=== PATIENT | male | born 1945 | race African-American/Black ===

== ENCOUNTER 2017-06-28 07:08 | Inpatient (IN) | payer MEDICARE, MEDICAID ==
[2017-06-28] VITALS (12 sets, daily range): BP systolic 75–127; BP diastolic 37–94
[~2017-06-28] VITALS: Ht 165.1 cm; Wt 57.0 kg
[~2017-06-28 07:08] MED LIST: ACET-2178 PO; ACET167L14 PO; AMLO2.5T45 PO; BISA-81 PO; BISACODYL; CA C PO; CALC3.8S NS; D-ME473S8 PO; DIPH25CA83 PO; DOCU50LI25 PO; FLUT16SP15 BOTHNSTRLS; IPRA3AMP9 HHN; LEVO500T2 PO; LEVO50TA8 PO; LEVOTHYROXINE; LORATADINE; LOSARTAN POTASSIUM; OMEP20CA10 PO; PROAIR HFA; PROT40 PO; SIME80TA53 PO; SODI45SP7 NS; SODIUM PHOSPHATE RC; SUCR1TAB30 PO; TUSSIN DM; VITD; [UNRECOGNIZED DRUG - CODE] OP
[2017-06-28] MEDS ORDERED: SODIUM CHLORIDE 0.9% 1,000 ML IV ONE (07:28)
[2017-06-28 08:06] LABS: BASOPHILS % 0.4 % (0.0-2.0); EOSINOPHILS % 0.3 % (0.0-5.0); HEMATOCRIT. 25.2 % (42.0-52.0); HEMOGLOBIN. 7.9 g/dL (14.0-18.0); LYMPHOCYTES % 9.6 % (20.0-50.0); MEAN CORPUSCULAR HEMOGLOBIN 28.4 pg (28.0-32.0); MEAN CORPUSCULAR VOLUME 89.9 fL (80.0-94.0); MEAN PLATELET VOLUME 8.7 fl (7.4-10.4); MONOCYTES % 4.8 % (2.0-8.0); NEUTROPHILS % 84.9 % (40.0-76.0); PLATELET 373 x1000/uL (130-400); RED CELL DISTRIBUTION WIDTH 16.3 % (11.6-14.6)
[2017-06-28 08:19] LABS: PROTHROMBIN TIME 10.7 sec (9.4-11.6)
[2017-06-28 08:23] LABS: CHLORIDE 112 mEq/L (98-107); ETHANOL BLOOD < 10 mg/dL
[2017-06-28] MEDS ORDERED: IPRATROPIUM/ALBUTEROL 0.5-3(2.5)MG/3ML NEB HHN ONE (08:30)
[2017-06-28] MEDS ORDERED: SODIUM CHLORIDE 0.9% 1000ML BAG (SEPSIS BOLUS) IV ONE (08:45)
[2017-06-28] MEDS ORDERED: CEFEPIME 1,000 MG in DEXTROSE 5% WATER 50 ML IV SCH (08:45)
[2017-06-28] MEDS ORDERED: VANCOMYCIN 1 G PREMIX 200 ML IV ONE (08:45)
[2017-06-28 09:09] LABS: BG BASE EXCESS -0.1 mmol/L (-2.0-2.0); BG CARBOXYHEMOGLOBIN 0.3 % (0.5-1.5); BG DEOXYHEMOGLOBIN 5.1 % (0.0-5.0); BG FRACTION INSPIRED OXYGEN 28; BG METHEMOGLOBIN 1.8 % (0.0-1.5); BG OXYGEN SATURATION 94.8 % (92.0-98.5); BG OXYHEMOGLOBIN 92.8 % (94.0-97.0); BG PCO2 36.6 mmHg (35.0-45.0); BG PH 7.435 (7.350-7.450); BG PO2 79.6 mmHg (75.0-100.0); BG SAMPLE SITE RIGHT RADIAL; BG TOTAL HEMOGLOBIN 7.4 g/dL (12.0-18.0); BG VENT MODE NASAL CANNULA
[2017-06-28 09:18] LABS: CLARITY URINE CLEAR (CLEAR); COLOR URINE YELLOW (YELLOW); KETONES URINE TRACE (NEGATIVE); LEUKOCYTE ESTERASE URINE NEGATIVE (NEGATIVE); NITRITE URINE NEGATIVE (NEGATIVE); OCCULT BLOOD URINE NEGATIVE (NEGATIVE); PROTEIN URINE NEGATIVE (NEGATIVE); SPECIFIC GRAVITY URINE 1.028 (1.005-1.030); UROBILINOGEN URINE 0.2 E.U./dL (0.2-1.0)
[2017-06-28 10:14] LABS: *AMPHETAMINES SCREEN URINE NEGATIVE (NEGATIVE); *BARBITURATES SCREEN URINE NEGATIVE (NEGATIVE); *BENZODIAZEPINES SCREEN URINE NEGATIVE (NEGATIVE); *COCAINE SCREEN URINE NEGATIVE (NEGATIVE); CANNABINOID URINE SCREEN NEGATIVE (NEGATIVE); METHADONE URINE SCREEN NEGATIVE (NEGATIVE); OPIATES URINE SCREEN NEGATIVE (NEGATIVE); PHENCYCLIDINE URINE SCREEN NEGATIVE (NEGATIVE)
[2017-06-28] MEDS ORDERED: CLONIDINE 0.1MG TABLET PO PRN (11:15)
[2017-06-28] MEDS ORDERED: ONDANSETRON HCL 4MG/2ML INJ IV PRN (11:15)
[2017-06-28] MEDS ORDERED: MAGNESIUM/ALUMINUM HYDROXIDE/SIMETHICONE 30ML UDC PO PRN (11:15)
[2017-06-28 12:25] LABS: CHLORIDE 117 mEq/L (98-107)
[2017-06-28] MEDS ORDERED: LEVOTHYROXINE SODIUM 75MCG TABLET PO SCH (15:15)
[2017-06-28] MEDS ORDERED: PANTOPRAZOLE SODIUM 40 MG/VIAL IV SCH (15:15)
[2017-06-28] MEDS ORDERED: DEXTROSE 50% WATER 50ML SYRINGE IV PRN (15:30)
[2017-06-28] MEDS ORDERED: IPRATROPIUM/ALBUTEROL 0.5-3(2.5)MG/3ML NEB HHN PRN (15:30)
[2017-06-28 16:11] LABS: CREATINE KINASE MB FRACTION 4.4 ng/mL (0.5-3.6)
[2017-06-28] MEDS: SODIUM CHLORIDE 0.9% 1,000 ML IV SCH ×2 (17:09→19:41)
[2017-06-28] MEDS: METHYLPREDNISOLONE SOD SUCC 40 MG/ML VIAL IV SCH (17:10)
[2017-06-28] MEDS: BLOOD SUGAR DIAGNOSTIC STRIP TEST SCH ×2 (17:20→21:40)
[2017-06-28] MEDS: INSULIN LISPRO 100 UNITS/ML SUBCUT SCH ×2 (17:20→21:00)
[2017-06-28] MEDS: IPRATROPIUM/ALBUTEROL 0.5-3(2.5)MG/3ML NEB HHN SCH ×2 (18:00→20:18)
[2017-06-28] MEDS ORDERED: LEVOFLOXACIN 500MG PREMIX 100 ML IV NR (18:00)
[2017-06-28] MEDS: METRONIDAZOLE 500 MG PREMIX 100 ML IV SCH (18:33)
[2017-06-28] MEDS ORDERED: TERBUTALINE SULFATE 1MG/ML VIAL SUBCUT NR (19:15)
[2017-06-28 20:19] LABS: HEMOGLOBIN 5.2 g/dL (14.0-18.0)
[2017-06-28 20:34] LABS: CREATINE KINASE MB FRACTION 14.7 ng/mL (0.5-3.6)
[2017-06-28 20:41] LABS: BG BASE EXCESS -8.9 mmol/L (-2.0-2.0); BG CARBOXYHEMOGLOBIN 1.3 % (0.5-1.5); BG FRACTION INSPIRED OXYGEN 40; BG HCO3 ACT 15.4 mmol/L (22.0-26.0); BG METHEMOGLOBIN 0.6 % (0.0-1.5); BG OXYGEN SATURATION 96.9 % (92.0-98.5); BG OXYHEMOGLOBIN 95.1 % (94.0-97.0); BG PCO2 25.9 mmHg (35.0-45.0); BG PH 7.392 (7.350-7.450); BG PO2 105.2 mmHg (75.0-100.0); BG SAMPLE SITE LEFT RADIAL; BG VENT MODE MASK - SIMPLE
[2017-06-28] MEDS ORDERED: BISACODYL 10MG SUPP PR NR (22:45)
[2017-06-28] MEDS ORDERED: PANTOPRAZOLE SODIUM 40 MG/VIAL IV NR (22:45)
[2017-06-29] VITALS (57 sets, daily range): BP systolic 94–137; BP diastolic 50–108
[2017-06-29] MEDS: METHYLPREDNISOLONE SOD SUCC 40 MG/ML VIAL IV SCH (00:25)
[2017-06-29] MEDS: METRONIDAZOLE 500 MG PREMIX 100 ML IV SCH ×3 (01:04→18:50)
[2017-06-29] MEDS: IPRATROPIUM/ALBUTEROL 0.5-3(2.5)MG/3ML NEB HHN SCH ×4 (03:42→19:47)
[2017-06-29 05:33] LABS: HEMATOCRIT. 31.2 % (42.0-52.0); HEMOGLOBIN. 10.1 g/dL (14.0-18.0); MEAN CORPUSCULAR HEMOGLOBIN 28.2 pg (28.0-32.0); MEAN CORPUSCULAR VOLUME 87.3 fL (80.0-94.0); PLATELET 208 x1000/uL (130-400); RED BLOOD CELL COUNT 3.57 mill/uL (4.7-6.1); RED CELL DISTRIBUTION WIDTH 15.1 % (11.6-14.6)
[2017-06-29] MEDS ORDERED: PANTOPRAZOLE SODIUM 40 MG/VIAL IV SCH (06:00)
[2017-06-29] MEDS: BLOOD SUGAR DIAGNOSTIC STRIP TEST SCH ×4 (07:50→22:25)
[2017-06-29] MEDS: LORAZEPAM 2MG/ML CPJ IV PRN (07:52)
[2017-06-29 07:57] LABS: PLATELET ESTIMATE NORMAL
[2017-06-29] MEDS: INSULIN LISPRO 100 UNITS/ML SUBCUT SCH ×4 (08:20→22:25)
[2017-06-29] MEDS ORDERED: LEVOFLOXACIN 500MG PREMIX 100 ML IV SCH (09:00)
[2017-06-29] MEDS ORDERED: LEVOTHYROXINE SODIUM 100 MCG/ VIAL IV SCH (09:00)
[2017-06-29 09:52] LABS: CHLORIDE 118 mEq/L (98-107); PHOSPHORUS 2.6 mg/dL (2.5-4.9)
[2017-06-29] MEDS ORDERED: BACTERIOSTATIC SODIUM CHLORIDE 0.9% 30ML VIAL IJ ONE (11:16)
[2017-06-29] MEDS ORDERED: PANTOPRAZOLE 80 MG in SODIUM CHLORIDE 0.9% 100 ML IV SCH (12:15)
[2017-06-29 12:53] LABS: HEMATOCRIT 26.4 % (42.0-52.0); HEMOGLOBIN 8.8 g/dL (14.0-18.0)
[2017-06-29] MEDS: METHYLPREDNISOLONE SOD SUCC IV SCH ×3 (13:03→22:32)
[2017-06-29] MEDS: SODIUM CHLORIDE 0.9% IV SCH ×3 (13:03→22:32)
[2017-06-29] MEDS: SODIUM CHLORIDE 0.9% 1,000 ML IV SCH (13:04)
[2017-06-29] MEDS: ACETAMINOPHEN 325MG TABLET PO PRN (14:27)
[2017-06-29] MEDS ORDERED: LEVOFLOXACIN 500MG PREMIX 100 ML IV NR (15:00)
[2017-06-29] MEDS ORDERED: FENTANYL CITRATE/PF 50MCG/ML 2ML VIAL ONE (17:17)
[2017-06-29] MEDS ORDERED: MIDAZOLAM HCL 5 MG/5 ML VIAL ONE (17:17)
[2017-06-29] MEDS ORDERED: MIDAZOLAM HCL 5 MG/5 ML VIAL IV PRN (17:35)
[2017-06-29] MEDS: PANTOPRAZOLE SODIUM 40 MG/VIAL IV SCH (18:50)
[2017-06-29 19:11] LABS: HEMATOCRIT 23.4 % (42.0-52.0); HEMOGLOBIN 7.7 g/dL (14.0-18.0)
[2017-06-29] MEDS ORDERED: SORBITOL 70% SOLN 30ML PO NR (20:00)
[2017-06-29] MEDS: SUCRALFATE 1 G/10 ML UDC PO SCH (21:00)
[2017-06-30] VITALS (12 sets, daily range): BP systolic 101–126; BP diastolic 57–73
[2017-06-30] MEDS: METRONIDAZOLE 500 MG PREMIX 100 ML IV SCH ×3 (01:17→17:56)
[2017-06-30] MEDS: LORAZEPAM 2MG/ML CPJ IV PRN ×2 (01:28→21:20)
[2017-06-30] MEDS ORDERED: SORBITOL 70% SOLN 30ML PO NR (05:00)
[2017-06-30] MEDS: PANTOPRAZOLE SODIUM 40 MG/VIAL IV SCH ×2 (05:35→17:56)
[2017-06-30] MEDS: SODIUM CHLORIDE 0.9% IV SCH ×3 (05:35→21:20)
[2017-06-30] MEDS: METHYLPREDNISOLONE SOD SUCC IV SCH ×3 (05:35→21:20)
[2017-06-30] MEDS: SODIUM CHLORIDE 0.9% 1,000 ML IV SCH (06:24)
[2017-06-30 06:34] LABS: HEMATOCRIT 22.5 % (42.0-52.0); HEMOGLOBIN 7.5 g/dL (14.0-18.0); MEAN CORPUSCULAR HEMOGLOBIN 28.6 pg (28.0-32.0); MEAN CORPUSCULAR VOLUME 85.7 fL (80.0-94.0); PLATELET 162 x1000/uL (130-400); RED BLOOD CELL COUNT 2.63 mill/uL (4.7-6.1)
[2017-06-30] MEDS: INSULIN LISPRO 100 UNITS/ML SUBCUT SCH ×3 (08:00→17:52)
[2017-06-30] MEDS: BLOOD SUGAR DIAGNOSTIC STRIP TEST SCH ×3 (08:01→17:19)
[2017-06-30] MEDS: SUCRALFATE 1 G/10 ML UDC PO SCH ×4 (08:16→21:20)
[2017-06-30] MEDS: LEVOTHYROXINE SODIUM 100 MCG/ VIAL IV SCH (08:16)
[2017-06-30] MEDS: IPRATROPIUM/ALBUTEROL 0.5-3(2.5)MG/3ML NEB HHN SCH ×3 (08:58→20:57)
[2017-06-30] MEDS: LEVOFLOXACIN 250MG PREMIX 50 ML IV SCH (16:26)
[2017-07-01] VITALS (12 sets, daily range): BP systolic 102–136; BP diastolic 57–76
[2017-07-01] MEDS: BLOOD SUGAR DIAGNOSTIC STRIP TEST SCH ×4 (00:03→18:00)
[2017-07-01] MEDS: SODIUM CHLORIDE 0.9% 1,000 ML IV SCH (00:11)
[2017-07-01] MEDS: IPRATROPIUM/ALBUTEROL 0.5-3(2.5)MG/3ML NEB HHN SCH ×4 (01:22→20:39)
[2017-07-01] MEDS: METRONIDAZOLE 500 MG PREMIX 100 ML IV SCH ×3 (02:09→18:54)
[2017-07-01] MEDS: INSULIN LISPRO 100 UNITS/ML SUBCUT SCH ×4 (06:00→18:00)
[2017-07-01 06:13] LABS: HEMATOCRIT. 21.6 % (42.0-52.0); HEMOGLOBIN. 7.2 g/dL (14.0-18.0); MEAN CORPUSCULAR VOLUME 87.8 fL (80.0-94.0); MEAN PLATELET VOLUME 9.1 fl (7.4-10.4); PLATELET 133 x1000/uL (130-400); RED BLOOD CELL COUNT 2.46 mill/uL (4.7-6.1); RED CELL DISTRIBUTION WIDTH 16.2 % (11.6-14.6)
[2017-07-01 06:38] LABS: CHLORIDE 128 mEq/L (98-107)
[2017-07-01] MEDS: PANTOPRAZOLE SODIUM 40 MG/VIAL IV SCH ×2 (06:39→18:53)
[2017-07-01] MEDS: SODIUM CHLORIDE 0.9% IV SCH ×2 (06:39→14:49)
[2017-07-01] MEDS: SUCRALFATE 1 G/10 ML UDC PO SCH ×4 (06:39→21:13)
[2017-07-01] MEDS: METHYLPREDNISOLONE SOD SUCC IV SCH ×2 (06:39→14:49)
[2017-07-01] MEDS: LEVOTHYROXINE SODIUM 100 MCG/ VIAL IV SCH (09:13)
[2017-07-01] MEDS: DEXTROSE 5% WATER 1,000 ML IV SCH (14:49)
[2017-07-01 15:51] LABS: PLATELET ESTIMATE NORMAL
[2017-07-01] MEDS ORDERED: LACTULOSE 20G/30ML UDC PO NR (16:30)
[2017-07-01] MEDS ORDERED: POTASSIUM CHLORIDE 20MEQ/PACKET PO NR (16:30)
[2017-07-01] MEDS: DOCUSATE SODIUM SUGAR FREE 100MG/10ML UDC NG SCH (18:52)
[2017-07-01] MEDS: LEVOFLOXACIN 250MG PREMIX 50 ML IV SCH (19:04)
[2017-07-01] MEDS: ACETAMINOPHEN 325MG TABLET PO PRN (21:13)
[2017-07-01] MEDS: DOCUSATE SODIUM 100MG CAPSULE PO PRN (21:32)
[2017-07-01] MEDS: LORAZEPAM 2MG/ML CPJ IV PRN (22:38)
[2017-07-02] VITALS (12 sets, daily range): BP systolic 105–136; BP diastolic 60–87
[2017-07-02] MEDS: INSULIN LISPRO 100 UNITS/ML SUBCUT SCH ×4 (00:20→17:58)
[2017-07-02] MEDS: BLOOD SUGAR DIAGNOSTIC STRIP TEST SCH ×4 (00:21→17:57)
[2017-07-02] MEDS: IPRATROPIUM/ALBUTEROL 0.5-3(2.5)MG/3ML NEB HHN SCH ×4 (00:34→23:57)
[2017-07-02] MEDS: METRONIDAZOLE 500 MG PREMIX 100 ML IV SCH ×3 (02:15→17:56)
[2017-07-02 06:10] LABS: INR 1.2; PARTIAL THROMBOPLASTIN TIME 25.4 sec (23.4-31.0); PROTHROMBIN TIME 12.2 sec (9.4-11.6)
[2017-07-02] MEDS: SUCRALFATE 1 G/10 ML UDC PO SCH ×4 (06:37→20:58)
[2017-07-02] MEDS: PANTOPRAZOLE SODIUM 40 MG/VIAL IV SCH ×2 (06:38→17:56)
[2017-07-02] MEDS ORDERED: NA PHOS,M-B/NA PHOS,DI-BA ENEMA 118ML PR NR ×3 (07:30→15:00)
[2017-07-02] MEDS: DOCUSATE SODIUM SUGAR FREE 100MG/10ML UDC NG SCH (10:39)
[2017-07-02] MEDS: LEVOTHYROXINE SODIUM 100 MCG/ VIAL IV SCH (10:39)
[2017-07-02] MEDS: DEXTROSE 5% WATER 1,000 ML IV SCH (10:40)
[2017-07-02 13:26] LABS: BASOPHILS % 0.1 % (0.0-2.0); HEMATOCRIT. 22.5 % (42.0-52.0); HEMOGLOBIN. 7.3 g/dL (14.0-18.0); LYMPHOCYTES % 8.4 % (20.0-50.0); MEAN CORPUSCULAR HEMOGLOBIN 28.1 pg (28.0-32.0); MEAN CORPUSCULAR VOLUME 86.9 fL (80.0-94.0); MEAN PLATELET VOLUME 7.8 fl (7.4-10.4); MONOCYTES % 5.9 % (2.0-8.0); NEUTROPHILS % 85.6 % (40.0-76.0); PLATELET 102 x1000/uL (130-400); RED BLOOD CELL COUNT 2.59 mill/uL (4.7-6.1); RED CELL DISTRIBUTION WIDTH 16.1 % (11.6-14.6)
[2017-07-02] MEDS: METHYLPREDNISOLONE SOD SUCC 125 MG/2 ML VIAL IV SCH ×2 (13:35→17:56)
[2017-07-02 13:45] LABS: CHLORIDE 131 mEq/L (98-107)
[2017-07-02] MEDS: LEVOFLOXACIN 250MG PREMIX 50 ML IV SCH ×2 (14:30→14:31)
[2017-07-02] MEDS: BUDESONIDE 0.5MG/2ML NEB HHN SCH (23:57)
[2017-07-03] VITALS (13 sets, daily range): BP systolic 121–142; BP diastolic 68–82
[2017-07-03] MEDS: BLOOD SUGAR DIAGNOSTIC STRIP TEST SCH ×5 (00:24→23:18)
[2017-07-03] MEDS: METHYLPREDNISOLONE SOD SUCC 125 MG/2 ML VIAL IV SCH ×3 (00:25→23:18)
[2017-07-03] MEDS: IPRATROPIUM/ALBUTEROL 0.5-3(2.5)MG/3ML NEB HHN SCH ×4 (02:03→20:30)
[2017-07-03] MEDS: METRONIDAZOLE 500 MG PREMIX 100 ML IV SCH ×3 (02:58→17:20)
[2017-07-03] MEDS: PANTOPRAZOLE SODIUM 40 MG/VIAL IV SCH ×2 (05:35→17:20)
[2017-07-03] MEDS: DEXTROSE 5% WATER 1,000 ML IV SCH (05:35)
[2017-07-03] MEDS: INSULIN LISPRO 100 UNITS/ML SUBCUT SCH ×5 (05:42→23:21)
[2017-07-03] MEDS: SUCRALFATE 1 G/10 ML UDC PO SCH ×4 (07:55→20:21)
[2017-07-03] MEDS: BUDESONIDE 0.5MG/2ML NEB HHN SCH ×2 (08:32→20:30)
[2017-07-03] MEDS: LEVOTHYROXINE SODIUM 100 MCG/ VIAL IV SCH (09:25)
[2017-07-03] MEDS: DOCUSATE SODIUM SUGAR FREE 100MG/10ML UDC NG SCH (09:25)
[2017-07-03] MEDS ORDERED: SORBITOL 70% SOLN 30ML PO NR (12:00)
[2017-07-03] MEDS: LEVOFLOXACIN 250MG PREMIX 50 ML IV SCH (14:56)
[2017-07-04] VITALS (12 sets, daily range): BP systolic 125–147; BP diastolic 70–86
[2017-07-04] MEDS: METRONIDAZOLE 500 MG PREMIX 100 ML IV SCH ×3 (01:26→17:39)
[2017-07-04] MEDS: DEXTROSE 5% WATER 1,000 ML IV SCH (01:26)
[2017-07-04] MEDS: IPRATROPIUM/ALBUTEROL 0.5-3(2.5)MG/3ML NEB HHN SCH ×4 (01:29→20:29)
[2017-07-04 05:57] LABS: HEMATOCRIT. 22.2 % (42.0-52.0); HEMOGLOBIN. 7.4 g/dL (14.0-18.0); MEAN CORPUSCULAR HEMOGLOBIN 28.4 pg (28.0-32.0); MEAN CORPUSCULAR VOLUME 84.7 fL (80.0-94.0); MEAN PLATELET VOLUME 9.5 fl (7.4-10.4); PLATELET 93 x1000/uL (130-400); RED BLOOD CELL COUNT 2.62 mill/uL (4.7-6.1); RED CELL DISTRIBUTION WIDTH 15.7 % (11.6-14.6)
[2017-07-04] MEDS: INSULIN LISPRO 100 UNITS/ML SUBCUT SCH ×4 (06:00→23:38)
[2017-07-04 06:16] LABS: CHLORIDE 110 mEq/L (98-107)
[2017-07-04] MEDS: PANTOPRAZOLE SODIUM 40 MG/VIAL IV SCH ×2 (06:27→17:38)
[2017-07-04] MEDS: BLOOD SUGAR DIAGNOSTIC STRIP TEST SCH ×4 (06:27→23:38)
[2017-07-04] MEDS: SUCRALFATE 1 G/10 ML UDC PO SCH ×4 (06:32→20:41)
[2017-07-04] MEDS: BUDESONIDE 0.5MG/2ML NEB HHN SCH ×2 (07:49→20:29)
[2017-07-04] MEDS: DOCUSATE SODIUM SUGAR FREE 100MG/10ML UDC NG SCH (09:44)
[2017-07-04] MEDS: LEVOTHYROXINE SODIUM 100 MCG/ VIAL IV SCH (09:45)
[2017-07-04] MEDS: METHYLPREDNISOLONE SOD SUCC 125 MG/2 ML VIAL IV SCH ×2 (12:07→23:42)
[2017-07-04 14:18] LABS: PLATELET ESTIMATE NORMAL
[2017-07-04] MEDS: LEVOFLOXACIN 250MG PREMIX 50 ML IV SCH (16:29)
[2017-07-04] MEDS ORDERED: SORBITOL 70% SOLN 30ML PO NR (18:00)
[2017-07-05] VITALS (13 sets, daily range): BP systolic 113–156; BP diastolic 53–97
[2017-07-05] MEDS: IPRATROPIUM/ALBUTEROL 0.5-3(2.5)MG/3ML NEB HHN SCH ×4 (00:41→19:52)
[2017-07-05] MEDS: METRONIDAZOLE 500 MG PREMIX 100 ML IV SCH ×3 (02:25→17:34)
[2017-07-05] MEDS: INSULIN LISPRO 100 UNITS/ML SUBCUT SCH ×4 (06:00→23:29)
[2017-07-05] MEDS: BLOOD SUGAR DIAGNOSTIC STRIP TEST SCH ×4 (06:37→23:29)
[2017-07-05] MEDS: PANTOPRAZOLE SODIUM 40 MG/VIAL IV SCH ×2 (06:37→17:18)
[2017-07-05] MEDS: SUCRALFATE 1 G/10 ML UDC PO SCH ×4 (06:37→20:59)
[2017-07-05] MEDS: DEXTROSE 5% WATER 1,000 ML IV SCH ×2 (06:37→16:38)
[2017-07-05] MEDS: DOCUSATE SODIUM 100MG CAPSULE PO PRN (08:47)
[2017-07-05] MEDS: LEVOTHYROXINE SODIUM 100 MCG/ VIAL IV SCH (08:48)
[2017-07-05] MEDS: BUDESONIDE 0.5MG/2ML NEB HHN SCH (08:49)
[2017-07-05] MEDS: DOCUSATE SODIUM SUGAR FREE 100MG/10ML UDC NG SCH (08:52)
[2017-07-05] MEDS: ACETAMINOPHEN 325MG TABLET PO PRN (09:08)
[2017-07-05] MEDS ORDERED: SORBITOL 70% SOLN 30ML NG NR (12:15)
[2017-07-05] MEDS ORDERED: BISACODYL 10MG SUPP PR NR (12:15)
[2017-07-05 13:26] LABS: HEMATOCRIT 23.5 % (42.0-52.0); HEMOGLOBIN 7.7 g/dL (14.0-18.0); MEAN CORPUSCULAR HEMOGLOBIN 27.9 pg (28.0-32.0); MEAN CORPUSCULAR VOLUME 85.4 fL (80.0-94.0); PLATELET 107 x1000/uL (130-400); RED BLOOD CELL COUNT 2.75 mill/uL (4.7-6.1); RED CELL DISTRIBUTION WIDTH 15.6 % (11.6-14.6)
[2017-07-05] MEDS: METHYLPREDNISOLONE SOD SUCC 40 MG/ML VIAL IV SCH ×2 (13:49→20:59)
[2017-07-05] MEDS: LEVOFLOXACIN 250MG PREMIX 50 ML IV SCH (16:39)
[2017-07-06] VITALS (14 sets, daily range): BP systolic 121–152; BP diastolic 66–96
[2017-07-06] MEDS: IPRATROPIUM/ALBUTEROL 0.5-3(2.5)MG/3ML NEB HHN SCH ×4 (01:33→20:32)
[2017-07-06] MEDS: ACETAMINOPHEN 325MG TABLET PO PRN (02:13)
[2017-07-06] MEDS: METRONIDAZOLE 500 MG PREMIX 100 ML IV SCH ×3 (02:13→17:24)
[2017-07-06] MEDS: DEXTROSE 5% WATER 1,000 ML IV SCH (04:35)
[2017-07-06] MEDS: INSULIN LISPRO 100 UNITS/ML SUBCUT SCH ×4 (06:00→23:33)
[2017-07-06] MEDS: PANTOPRAZOLE SODIUM 40 MG/VIAL IV SCH ×2 (06:17→17:24)
[2017-07-06] MEDS: SUCRALFATE 1 G/10 ML UDC PO SCH ×4 (06:17→21:19)
[2017-07-06] MEDS: BLOOD SUGAR DIAGNOSTIC STRIP TEST SCH ×4 (06:17→23:33)
[2017-07-06 06:56] LABS: HEMATOCRIT. 23.7 % (42.0-52.0); HEMOGLOBIN. 7.9 g/dL (14.0-18.0); MEAN CORPUSCULAR HEMOGLOBIN 28.2 pg (28.0-32.0); MEAN CORPUSCULAR VOLUME 84.9 fL (80.0-94.0); MEAN PLATELET VOLUME 9.8 fl (7.4-10.4); PLATELET 126 x1000/uL (130-400); RED BLOOD CELL COUNT 2.79 mill/uL (4.7-6.1); RED CELL DISTRIBUTION WIDTH 15.7 % (11.6-14.6)
[2017-07-06 07:24] LABS: CHLORIDE 105 mEq/L (98-107)
[2017-07-06] MEDS: LEVOTHYROXINE SODIUM 100 MCG/ VIAL IV SCH (08:41)
[2017-07-06] MEDS: METHYLPREDNISOLONE SOD SUCC 40 MG/ML VIAL IV SCH ×2 (08:41→21:19)
[2017-07-06] MEDS: DOCUSATE SODIUM SUGAR FREE 100MG/10ML UDC NG SCH (08:41)
[2017-07-06 16:40] LABS: PLATELET ESTIMATE DECREASED
[2017-07-06] MEDS: LEVOFLOXACIN 250MG PREMIX 50 ML IV SCH (16:43)
[2017-07-07] VITALS (11 sets, daily range): BP systolic 126–159; BP diastolic 66–98
[2017-07-07] MEDS: IPRATROPIUM/ALBUTEROL 0.5-3(2.5)MG/3ML NEB HHN SCH ×4 (01:05→20:01)
[2017-07-07] MEDS: METRONIDAZOLE 500 MG PREMIX 100 ML IV SCH ×3 (02:06→17:02)
[2017-07-07] MEDS: DEXTROSE 5% WATER 1,000 ML IV SCH (02:07)
[2017-07-07] MEDS: INSULIN LISPRO 100 UNITS/ML SUBCUT SCH ×3 (06:00→17:07)
[2017-07-07] MEDS: SUCRALFATE 1 G/10 ML UDC PO SCH ×3 (06:40→16:45)
[2017-07-07] MEDS: PANTOPRAZOLE SODIUM 40 MG/VIAL IV SCH ×2 (06:40→17:02)
[2017-07-07] MEDS: BLOOD SUGAR DIAGNOSTIC STRIP TEST SCH ×3 (06:41→17:02)
[2017-07-07] MEDS ORDERED: PREDNISONE 20MG TABLET PO SCH (09:00)
[2017-07-07] MEDS: DOCUSATE SODIUM SUGAR FREE 100MG/10ML UDC NG SCH (09:43)
[2017-07-07] MEDS: LEVOTHYROXINE SODIUM 100 MCG/ VIAL IV SCH (09:43)
[2017-07-07] MEDS: LEVOFLOXACIN 250MG PREMIX 50 ML IV SCH (16:11)
[2017-07-08] MEDS ORDERED: LEVOTHYROXINE SODIUM 50MCG TABLET NG SCH (07:30)
[2017-07-08] MEDS ORDERED: LANSOPRAZOLE 30MG DR CAPSULE GT SCH (07:30)
[2017-07-08] MEDS ORDERED: PANTOPRAZOLE 40MG DR TABLET PO SCH (09:00)
== END 2017-07-07 21:11 | DRG 871 ==
LOC: EDSEX → ER 07:26 → 6WST 10:28 → EDSEX 10:28 → EDBEDREQTM 10:34 → ENRESERV 12:41 → CVICU 19:30 → 5EST 06-29 21:05
PROVIDERS: ADMIT Internal Medicine; ATTEND Internal Medicine
PROC: 30233N1 Transfusion of Nonautologous Red Blood Cells into Peripheral Vein, Percutaneous Approach (ICD-10-PCS; 2017-06-28)
PROC: 0DB68ZX Excision of Stomach, Via Natural or Artificial Opening Endoscopic, Diagnostic (ICD-10-PCS; principal; 2017-06-29)
DX: A41.9 Sepsis, unspecified organism (principal); J69.0 Pneumonitis due to inhalation of food and vomit; J96.20 Acute and chronic respiratory failure, unspecified whether with hypoxia or hypercapnia; N17.9 Acute kidney failure, unspecified; K29.01 Acute gastritis with bleeding; E87.2 Acidosis; D68.69 Other thrombophilia; E87.0 Hyperosmolality and hypernatremia; F73 Profound intellectual disabilities; E03.9 Hypothyroidism, unspecified; D64.9 Anemia, unspecified; E87.6 Hypokalemia; H26.9 Unspecified cataract; K31.7 Polyp of stomach and duodenum; R62.50 Unspecified lack of expected normal physiological development in childhood; K44.9 Diaphragmatic hernia without obstruction or gangrene; I10 Essential (primary) hypertension; R13.10 Dysphagia, unspecified; Z79.899 Other long term (current) drug therapy; Z90.49 Acquired absence of other specified parts of digestive tract; Z88.6 Allergy status to analgesic agent; Z88.1 Allergy status to other antibiotic agents; Z88.8 Allergy status to other drugs, medicaments and biological substances
CPT/HCPCS: 36415; 36600; 71045; 74018; 80048; 80061; 80305; 80307; 80329; 82140; 82270; 82375; 82550; 82553; 82728; 82805; 82962; 83540; 83550; 83605; 83735; 83880; 84100; 84134; 84443; 84484; 85014; 85018; 85027; 86677; 86850; 86900; 86920; 92610; 93005; 93970; 94640; 96361; 96365; 96368; 99291; C9113; G0482; J0692; J1815; J1956; J2060; J2250; J2920; J2930; J3010; J3105; J3370; J3490; J7030; J7040; J7050; J7060; J7070; J7512; J7620; J7626; P9016